=== PATIENT | female | born 1990 | race Caucasian/White ===

== ENCOUNTER 2024-03-21 10:16 | Emergency (ER) | payer MEDICAID, OTHER ==
[~2024-03-21] VITALS: Ht 170.2 cm; Wt 132.4 kg
[2024-03-21] MEDS ORDERED: ALBUTEROL SULFATE 2.5 MG/3 ML NEBU ONE (11:05)
[2024-03-21] MEDS ORDERED: IPRATROPIUM BROMIDE 0.5 MG/2.5 ML NEBU ONE (11:05)
[2024-03-21 11:06] VITALS: O2SAT 96
[2024-03-21] MEDS: IPRATROPIUM BROMIDE 0.5 MG/2.5 ML NEBU NEB ONE (11:06)
[2024-03-21] MEDS: ALBUTEROL SULFATE 2.5 MG/3 ML NEBU NEB ONE (11:06)
[2024-03-21 11:19] LABS: BASOPHILS % (AUTO) 0.4 % (0.0-2.0); EOSINOPHILS # (AUTO) 0.4 K/uL (0.0-0.7); EOSINOPHILS % (AUTO) 3.7 % (0.0-7.0); HEMATOCRIT 30.6 % (31.2-41.9); HEMOGLOBIN 10.2 g/dL (10.9-14.3); LYMPHOCYTES # (AUTO) 1.3 K/uL (0.8-4.8); LYMPHOCYTES % (AUTO) 13.3 % (20.5-51.5); MEAN CORPUSCULAR HEMOGLOBIN 27.8 uug (24.7-32.8); MEAN CORPUSCULAR HGB CONC 33 g/dL (32.3-35.6); MEAN CORPUSCULAR VOLUME 83.5 fL (75.5-95.3); MONOCYTES # (AUTO) 0.6 K/uL (0.1-1.30); MONOCYTES % (AUTO) 6.1 % (0.0-11.0); NEUTROPHILS # (AUTO) 7.5 K/uL (1.8-8.9); NEUTROPHILS % (AUTO) 76.5 % (38.5-71.5); PLATELET COUNT (AUTO) 178 K/uL (179-408); RED BLOOD CELL COUNT(AUTO) 3.66 MIL/uL (3.63-4.92); RED CELL DISTRIBUTION WIDTH 14.7 % (12.3-17.7); WHITE BLOOD COUNT (AUTO) 9.8 K/uL (3.8-11.8)
[2024-03-21 11:34] LABS: CALCIUM 8.6 mg/dL (8.5-10.1); CREATININE 0.6 mg/dL (0.6-1.3); POTASSIUM 3.5 mmol/L (3.5-5.1)
[2024-03-21 11:39] LABS: DIFFERENTIAL COMMENT 1
[2024-03-21 11:43] LABS: MAGNESIUM 1.9 mg/dL (1.8-2.4)
[2024-03-21 12:04] LABS: IRON, SERUM 33 ug/dL (50-175)
[2024-03-21 12:10] VITALS: O2SAT 99
[2024-03-21] MEDS ORDERED: CYANOCOBALAMIN 1000 MCG/ML VIAL ONE (12:32)
[2024-03-21] MEDS: CYANOCOBALAMIN 1000 MCG/ML VIAL IM ONE (12:39)
[2024-03-21] MEDS ORDERED: FERR325T23 PO (13:06)
[2024-03-21] MEDS ORDERED: ALBU6.7H9 INH (13:06)
[2024-03-21] MEDS ORDERED: PRED20TA PO (13:06)
[2024-03-21 13:18] VITALS: BP 119/69; O2SAT 99
== END 2024-03-21 13:25 | disposition home or self-care (01) ==
LOC: ER 10:16
DX: D50.9 Iron deficiency anemia, unspecified (principal); Z79.52 Long term (current) use of systemic steroids; Z88.1 Allergy status to other antibiotic agents; O99.519 Diseases of the respiratory system complicating pregnancy, unspecified trimester; J45.902 Unspecified asthma with status asthmaticus; O99.019 Anemia complicating pregnancy, unspecified trimester; E53.8 Deficiency of other specified B group vitamins; O99.280 Endocrine, nutritional and metabolic diseases complicating pregnancy, unspecified trimester; Z3A.00 Weeks of gestation of pregnancy not specified
CPT/HCPCS: 99291; 80048; 82607; 83550; 83735; 85025; 36415; 94644; 96372; J3420; A4606; A4663; J3590